=== PATIENT | male | born 2005 | race Two or more races ===

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

== ENCOUNTER 2024-03-02 08:24 | Emergency (ER) | payer OTHER ==
[~2024-03-02] VITALS: Ht 185.4 cm; Wt 122.7 kg
[2024-03-02 08:27] VITALS: TEMP 98.5
[2024-03-02] MEDS: METHOCARBAMOL 500 MG TABLET PO ONE (09:24)
[2024-03-02] MEDS: KETOROLAC TROMETHAMINE 60 MG/2 ML VIAL IM ONE (09:24)
[2024-03-02] MEDS ORDERED: METH-659 PO (11:11)
[2024-03-02] MEDS ORDERED: IBUP-1492 PO (11:11)
[2024-03-02 11:45] VITALS: BP 137/76; PULSE 87; RESP 18
== END 2024-03-02 12:05 | disposition home or self-care (01) ==
LOC: EMS 08:24
DX: S13.4XXA Sprain of ligaments of cervical spine, initial encounter (principal); R07.89 Other chest pain; V49.88XA Car occupant (driver) (passenger) injured in other specified transport accidents, initial encounter; Y93.89 Activity, other specified; Y92.89 Other specified places as the place of occurrence of the external cause; Y99.8 Other external cause status
CPT/HCPCS: 99285; 71250; 72125; 96372; J1885